=== PATIENT | male | born 1945 | race African-American/Black ===

== ENCOUNTER 2020-03-10 13:53 | Emergency (ER) | payer MEDICARE, OTHER ==
[~2020-03-10] VITALS: Ht 175.3 cm; Wt 63.5 kg
[2020-03-10 14:13] VITALS: BP 140/98
--- NOTE | 2020-03-10 14:14 | Emergency Room Report ---
History of Present Illness General Chief Complaint: Abdominal Pain Source: Patient Present Illness HPI Patient is a 74-year-old male presents for increased right-sided testicular pain. Prior history of hernia surgery. States he had surgery performed at [facility]. Had been doing well but noticed approximate 1 week his right testicle had become more enlarged and swollen. Denies any fever. Had not been vomiting. Reports having increased runny stools after taking milk of magnesia with intermittent bouts of constipation. 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 COVID-19 Screening: Negative COVID-19 COVID-19 Testing Source: [facility] Patient History Past Medical History: see triage record Reviewed Nursing Documentation: PMH: Agreed; PSxH: Agreed Nursing Documentation-PMH Hx Hypertension: Yes Hx COPD: Yes Review of Systems All Other Systems: negative except mentioned in HPI Physical Exam Vital Signs Date Time Temp Pulse Resp B/P (MAP) Pulse Ox O2 Delivery O2 Flow Rate FiO2 03/10/20 13:56 98.1 90 18 140/98 (112) 98 Room Air Sp02 EP Interpretation: reviewed, normal General Appearance: normal inspection, well appearing, no apparent distress, alert, GCS 15 Head: atraumatic ENT: normal ENT inspection, hearing grossly normal, normal voice Neck: normal inspection, full range of motion, supple, no bony tend Respiratory: normal inspection, lungs clear, normal breath sounds, no respiratory distress, no retraction, no wheezing Cardiovascular #1: regular rate, rhythm, no edema Gastrointestinal: normal inspection, normal bowel sounds, non tender, soft, no guarding, no hernia Genitourinary: no CVA tenderness, other - Right-sided testicular enlargement without erythema, no palpable masses Musculoskeletal: normal inspection, back normal, normal range of motion Neurologic: alert, motor strength/tone normal, 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 Differential diagnosis include was not limited to torsion, hernia, epididymitis, testicular cancer, among others. Ultrasound imaging was ordered to evaluate for patient statistical problems. Does not appear to have any evidence of inguinal hernia which is palpable. Testicle has normal lie with some slight skin discoloration consistent with eczematous changes. Patient denies having any penile discharge or other concerning symptoms for possible orchitis. Urinalysis showed some possible urinary infection and so patient was given prescription for Keflex. Patient was offered CT imaging which he declined. Patient's results were discussed with the patient and his daughter. There is no erythema or tenderness noted. Patient advised outpatient management with urology. He is advised to return if worse. This medical record is generated with [employer] printing supplies sales representative software. There may be some printing supplies sales representative discrepancies related to use of this software Last Vital Signs Date Time Temp Pulse Resp B/P (MAP) Pulse Ox O2 Delivery O2 Flow Rate FiO2 03/10/20 13:56 98.1 90 18 140/98 (112) 98 Room Air Status: improved Disposition: HOME, SELF-CARE Condition: Stable Scripts Cephalexin* (KEFLEX*) 500 Mg Capsule 500 MG ORAL EVERY 6 HOURS, #28 CAP Prov: Primitivo Don MD 03/10/20 Primitivo Don MD Mar 10, 2020 14:14
[2020-03-10] MEDS ORDERED: VENTOLIN HFA18 GM INH (14:17)
[2020-03-10] MEDS ORDERED: ATIVAN1 MG ORAL ×2 (14:17)
[2020-03-10] MEDS ORDERED: ALBUTEROL SULF8.5 G1 INH (14:17)
[2020-03-10] MEDS ORDERED: TRAMADOL HCL50 MG ORAL (14:17)
[2020-03-10] MEDS ORDERED: FERROUS SULFAT325 MG ORAL (14:17)
[2020-03-10] MEDS ORDERED: AMLODIPINE BESY10 MG ORAL (14:17)
[2020-03-10 14:44] LABS: APPEARANCE,URINE SLIGHTLY CLOUDY; BILIRUBIN, URINE NEGATIVE (NEGATIVE); GLUCOSE, URINE (UA) NEGATIVE (NEGATIVE); KETONES,URINE 2+ (NEGATIVE); LEUKOCYTE ESTERASE ,URINE 2+ (NEGATIVE); NITRITE,URINE NEGATIVE (NEGATIVE); PH,URINE 6.5 (4.5-8.0); PROTEIN,URINE 2+ (NEGATIVE); UROBILINOGEN,URINE NORMAL MG/DL (0.0-1.0)
[2020-03-10 14:47] LABS: COLOR,URINE YELLOW
[2020-03-10 15:30] VITALS: BP 140/98
[2020-03-10] MEDS ORDERED: CEPHALEXIN500 MG ORAL (15:30)
--- NOTE | 2020-03-10 16:04 | Diagnostic Imaging Report ---
Indications: Right-sided testicular pain and swelling Technique: Grayscale and duplex images of the scrotum Comparison: none Findings:The right testicle measures 2.6cm in length. It demonstrates normal echogenicity. Normal Doppler flow. Normal epididymis. There is a very large right hydrocele The left testicle measures 3.7 cm in length. It demonstrates normal echogenicity and normal Doppler flow. Normal epididymis. There is a smaller left hydrocele Impression: Large right hydrocele Somewhat atrophic right testicle Small left hydrocele
== END 2020-03-10 15:30 | disposition home or self-care (01) ==
LOC: EMR 14:21
DX: N43.3 Hydrocele, unspecified (principal); I10 Essential (primary) hypertension; J44.9 Chronic obstructive pulmonary disease, unspecified
CPT/HCPCS: 76870; 81003; 99284